=== PATIENT | female | born 1965 | race Caucasian/White ===

== ENCOUNTER 2017-09-21 10:42 | Emergency (ER) | payer BC ==
[2017-09-21 11:15] VITALS: BP 134/75; PULSE 87; TEMP 98.1; BMI 23.8
--- NOTE | 2017-09-21 11:52 | PDOC ---
History of Present Illness - General Chief Complaint: Head/Neck problem Stated Complaint: LEFT ARM NUMBENSS TO JAW AND LOWER LIP AND TON Time Seen by Provider: 09/21/17 11:00 - History of Present Illness Initial Comments: 09/21/17 11:49 Chief complaint numbness tingling to cheek tong arm History of present illness: This is a 51-year-old woman with past medical history significant for migraines, anxiety, and cervical disc disease with chronic left arm tingling who presents to the emergency department after awakening from sleep last night at approximately 1 AM with tingling to her left arm left cheek and left tongue. Symptoms lasted approximately half hour she then went back to sleep upon awakening symptoms had almost completely resolved she went to work. 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 Currently her symptoms have completely resolved. She denies any headache no recent flulike symptoms no chest pain or shortness of breath no weakness no numbness. Symptoms were intermittent occurred while at rest alleviated with time no exacerbating factors. NIH Stroke Scale - Last Known Well Date/Time & Onset Date Last Known Well: 09/20/17 - Initial Evaluation Level of consciousness: Alert Ask patient the month and their age: Answers both correctly Ask patient to open & close eyes; make fist and let go: Obeys both correctly Best gaze (horizontal eye movement): Normal Visual field testing: No visual field loss Facial paresis (Show teeth/raise eyebrows/close eyes tight): Normal symmetrical movement Motor Function: Left Arm: Normal Motor Function: Right Arm: Normal (extends arm 90 (or 45) degrees for 10 seconds without drift Motor Function: Left Leg: Normal (extends leg 30 degrees for 5 seconds without drift) Motor Function: Right Leg: Normal (extends leg 30 degrees for 5 seconds without drift) Limb Ataxia: No ataxia Sensory(Use pinprick test arms,legs,trunk,face/side to side): Normal Best language (Describe picture, name items, read sentences): No Aphasia Dysarthria (read several words): Normal articulation Extinction and Inattention: No abnormality - Total Score NIH Stroke Scale Score: 0 Past History - Travel Traveled outside of the country in the last 30 days: No Close contact w/someone who was outside of country & ill: No - Past Medical History Allergies/Adverse Reactions: Allergies Allergy/AdvReac Type Severity Reaction Status Date / Time atropine sulfate Allergy Verified 09/21/17 10:53 [From ] bupropion HCl Allergy Verified 09/21/17 10:53 [From Wellbutrin] cefuroxime axetil Allergy Verified 09/21/17 10:53 [From Ceftin] diclofenac sodium Allergy Verified 09/21/17 10:53 [From Pennsaid] hyoscyamine sulfate Allergy Verified 09/21/17 10:53 [From ] levothyroxine sodium Allergy Verified 09/21/17 10:53 metoprolol succinate Allergy Verified 09/21/17 10:53 [From Toprol XL] phenobarbital [From ] Allergy Verified 09/21/17 10:53 scopolamine hydrobromide Allergy Verified 09/21/17 10:53 [From ] topiramate [From Topamax] Allergy Verified 09/21/17 10:53 Home Medications: Ambulatory Orders Alprazolam [Xanax] 0.25 mg PO PRN 09/21/17 Ranitidine HCl [Zantac] 150 mg PO PRN 09/21/17 Rizatriptan Benzoate [Maxalt] 10 mg PO PRN 09/21/17 Anemia: No Asthma: No Cancer: No Cardiac Disorders: Yes (RHEUMATIC FEVER MVP) COPD: No CHF: No Diabetes: No (LATENT DIABETES MELLITUS) GI Disorders: Yes (GERD) Disorders: Yes (ENDOMETRIOSIS OF INTESTINE) HTN: No Hypercholesterolemia: No Liver Disease: No Psychiatric Problems: Yes (ANXIETY) Thyroid Disease: Yes (HYPOTHYROIDISM) Other medical history: 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, MIGRAINES - Surgical History Abdominal Surgery: No Appendectomy: No Cardiac Surgery: No Cholecystectomy: No GI Surgery: Yes (LAPOROSCOPY, LAPOROTOMY) Lung Surgery: No Neurologic Surgery: No Orthopedic Surgery: Yes (ROTATOR CUFF REPAIR L 03/14) - Suicide/Smoking/Psychosocial Hx Smoking History: Former smoker Have you smoked in the past 12 months: No If you are a former smoker, when did you quit?: 11 YEARS AGO Information on smoking cessation initiated: No Hx Alcohol Use: Yes (SOCIAL) Drug/Substance Use Hx: No Substance Use Type: Alcohol Hx Substance Use Treatment: No Review of Systems - Review of Systems Comments:: 09/21/17 11:51 ROS: A complete review of 10 out of 10 review of systems is taken and is negative apart from what is previously mentioned below and in the HPI. *Physical Exam - Vital Signs Last Vital Signs Temp Pulse Resp BP Pulse Ox 98.1 F 87 16 134/75 100 09/21/17 10:45 09/21/17 10:45 09/21/17 10:45 09/21/17 10:45 09/21/17 10:45 - Physical Exam Comments: 09/21/17 11:51 Vitals: Triage Vital signs reviewed General Appearance: no acute distress, well nourished well developed, Head: Atraumatic, Eyes: Pupils equal reactive round, extraocular movement intact Throat: Posterior oropharynx without erythema, mucous membranes moist, Neck: Supple;No Nucal rigidity Chest Wall: Nontender Cardiac: Regular rate and rhythym, no murmurs, no rubs, no gallops, Lungs: Clear to auscultation bilateral, good air movement bilaterally, Abdomen: Soft, non distended, normal bowel sounds, non tender to palpation Extremities: Full range of motion to all extremities, no cyanosis, clubbing, or edema Skin: Warm and dry, no rashes or lesions, no rash, no petechiae Neuro: AOX3; Cranial Nerves 2-12 grossly intact, Strength intact to all extremities, Sensation intact to all extremities,gait normal, no pronator drift , normal finger to nose Psych: normal mood, normal affect Heart Score/ECG Review - ECG Impressions Comment:: 09/21/17 11:52 EKG performed at 11:33 AM. Sinus rhythm rate of [address] elevations no T-wave inversions. Normal intervals Interpreted by me ED Treatment Course - LABORATORY CBC & Chemistry Diagram: 09/21/17 11:15 09/21/17 12:00 - RADIOLOGY Radiology Studies Ordered: Category Date Time Status CERVICAL SPINE CT W/O CONTR [CT] Stat CT Scan 09/21/17 11:[address] WITHOUT CONTRAST [CT] Stat CT Scan 09/21/17 11:12 Ordered CXRPORT [CHEST X-RAY PORTABLE*] [RAD] Stat Radiology 09/21/17 11:12 Ordered Medical Decision Making - Medical Decision Making 09/21/17 11:52 51 years old past medical history significant for migraines, anxiety, cervical next disease presents to the emergency department after waking from sleep at approximately 1 AM with numbness tingling to her left on left cheek left tongue. Here in the emergency patient with no focal findings on neurologic examination an IHSS stroke scale score 0. Differential diagnosis includes TIA, radiculopathy, cervical disc disease, complex migraine, We'll check labs EKG troponin given left arm tingling CT head CT cervical will discussed with patient's neurologist observe and reassess 09/21/17 13:28 1 point on ABCD 2 score patient currently asymptomatic with a normal neurologic examination. Head CT and cervical spine CT as dictated. Labs EKG troponin all within normal limits Case discussed with Dr. Dalal neurology recommends 81 mg aspirin daily will follow-up patient next week at this point patient safe for outpatient follow-up Findings, the need for follow-up and strict return instructions discussed with patient. *DC/Admit/Observation/Transfer Diagnosis at time of Disposition: Tingling - Discharge Dispostion Condition at time of disposition: Stable Admit: No - Referrals - Patient Instructions Additional Instructions: Take 81 mg aspirin daily. Follow-up with Dr. Dalal this week. Return to the emergency department for any severe worsening symptoms or for any concerns. - Post Discharge Activity
[2017-09-21 12:00] LABS: BASO % 1.1 % (0-2.0); LYMPH % 28.4 % (8-40); MCH 28.6 pg (25.7-33.7); MCHC 33.4 g/dl (32.0-36.0); MEAN CELL VOLUME 85.7 fl (80-96); MEAN PLT VOLUME 8.7 fl (7.5-11.1); NEUT % 64.5 % (42.8-82.8); PLATELET COUNT 350 K/MM3 (134-434); RDW 12.1 % (11.6-15.6); WHITE BLOOD COUNT 6.1 K/mm3 (4.0-10.8)
[2017-09-21 12:59] LABS: ANION GAP 4 (8-16); BLOOD UREA NITROGEN 13 mg/dl (7-18); CALCIUM 9.7 mg/dl (8.4-10.2); CHLORIDE 104 mmol/L (98-107); CO2 29 mmol/L (22-28); GLUCOSE,RANDOM 116 mg/dl (74-106); POTASSIUM 4.7 mmol/L (3.5-5.1); SODIUM 137 mmol/L (136-145)
[2017-09-21 13:13] LABS: CREATININE < 0.8 mg/dl (0.6-1.3)
--- NOTE | 2017-09-22 07:55 | EKG ---
Test Reason : Blood Pressure : / mmHG Vent. Rate : 072 BPM Atrial Rate : 072 BPM P-R Int : 132 ms QRS Dur : 078 ms QT Int : 416 ms P-R-T Axes : 031 049 033 degrees QTc Int : 455 ms NORMAL SINUS RHYTHM NORMAL ECG WHEN COMPARED WITH ECG OF 18-NOV-2005 20:11, NO SIGNIFICANT CHANGE WAS FOUND Confirmed by LSIA ROMERO MD ([id number]) on 09/22/2017 7:54:43 AM Referred By: MARCEL SANTIAGO Confirmed By:LISA ROMERO MD
== END 2017-09-21 13:37 | disposition home or self-care (01) ==
LOC: FER 10:42
DX: R20.2 Paresthesia of skin (principal)
CPT/HCPCS: 36415; 70450-TC; 71045-TC-FY; 72125-TC; 80048; 84484; 85025; 93005; 99283-25

== ENCOUNTER 2018-01-31 11:30 | Inpatient (IN) | payer BC, OTHER ==
[2018-02-04 16:08] VITALS: BMI 29.2
[2018-02-07] MEDS ORDERED: ROCURONIUM BROMIDE 50 MG/5 ML VIAL ONE (10:47)
[2018-02-07] MEDS ORDERED: PROPOFOL 20 ML ONE (10:47)
[2018-02-07] MEDS ORDERED: fentaNYL CITRATE 250 MCG/5 ML VIAL ONE (10:47)
[2018-02-07] MEDS ORDERED: MIDAZOLAM HCL 2 MG/2 ML SINGLE DOSE VIAL ONE (10:47)
[2018-02-07] MEDS ORDERED: DEXAMETHASONE SOD PHOSPHATE 4 MG/1 ML VIAL ONE (10:51)
[2018-02-07] MEDS ORDERED: LIDOCAINE HCL/PF 2% SDV 5ML VIAL ONE (10:51)
[2018-02-07] MEDS ORDERED: GENTAMICIN SO4 80 MG/2 ML VIAL ONE (11:03)
--- NOTE | 2018-02-07 11:03 | HP ---
History & Physical Update - History History: No Change - Physical Physical: No Change - Assessment Assessment: No Change - Plan Plan: No Change
[2018-02-07] MEDS ORDERED: BUPIVACAINE HCL/PF 0.5% (5MG/ML) 10 ML VIAL ONE (11:04)
[2018-02-07] MEDS ORDERED: VANCOMYCIN 1,000 MG VIAL (RESTRICTED TO ID ONLY) IVPB ONE (11:31)
[2018-02-07] MEDS ORDERED: MINERAL OIL 25 ML OIL ONE (12:50)
[2018-02-07] MEDS ORDERED: oxyCODONE HCL 5 MG TABLET PO PRN ×3 (13:50→13:56)
[2018-02-07] MEDS ORDERED: ONDANSETRON 4 MG/2 ML VIAL IVPUSH PRN ×2 (13:50→13:56)
[2018-02-07] MEDS ORDERED: diphenhydrAMINE HCL 25 MG CAPSULE (FP) PO PRN (13:50)
[2018-02-07] MEDS ORDERED: morphine CARPU-JECT 4 MG/1 ML DISP.SYRIN IVPUSH PRN (13:50)
[2018-02-07] MEDS ORDERED: PROMETHAZINE HCL 25 MG/1 ML VIAL IVPUSH PRN (13:56)
[2018-02-07] MEDS ORDERED: DOCUSATE SODIUM 100 MG CAPSULE (FP) PO SCH (14:00)
[2018-02-07] MEDS ORDERED: HEPARIN NA (PORCINE) 5,000 UNITS/ML 1ML VIAL SQ SCH (14:00)
[2018-02-07] MEDS ORDERED: LACTATED RINGERS SOLUTION 1,000 ML IV SCH (14:00)
[2018-02-07] MEDS ORDERED: LACTATED RINGERS SOLUTION 1,000 ML/1,000 ML INFUS.BAG IV SCH (14:00)
--- NOTE | 2018-02-07 14:00 | OP ---
Operative Note - Note: Operative Date: 02/07/18 Pre-Operative Diagnosis: Cervical spondylosis with radiculopathy Operation: C6 corpectomy and presybeterian of lordosis with reconstruction Surgeon: Иван Nicholas Blade Changer: Armando Taylor Anesthesia: General Estimated Blood Loss (mls): 50 Fluid Volume Replaced (mls): 800 Operative Report Dictated: Yes
--- NOTE | 2018-02-07 14:01 | SURG ---
Surgery Front Office Administrator Note Front Office Administrator: Armando Taylor PA-C Date of Service: 02/07/18 Diagnosis: Cervical spondylosis with radiculopathy Procedure: C6 corpectomy and advent of lordosis with reconstruction I was present for the entirety of the operative procedure. For further detail, please refer to operative report.
[2018-02-07] MEDS: ACETAMINOPHEN 1000 MG/100 ML VIAL (NON FORMULARY) IVPB PRN (19:35)
[2018-02-07] MEDS: RANITIDINE HCL 150 MG TABLET (FP) PO SCH (22:23)
[2018-02-08] MEDS: ACETAMINOPHEN 1000 MG/100 ML VIAL (NON FORMULARY) IVPB PRN ×3 (00:04→11:00)
--- NOTE | 2018-02-08 08:48 | PN ---
Progress Note, Physician - Current Medication List Current Medications: Active Medications Acetaminophen (Ofirmev Injection -) 1,000 mg IVPB Q4H PRN PRN Reason: PAIN 5-10 Last Admin: 02/08/18 06:17 Dose: 1,000 mg Lactated Ringer's (Lactated Ringers Solution) 1,000 mls @ 75 mls/hr IV ASDIR [facility] Last Admin: 02/07/18 18:05 Dose: Not Given Ondansetron HCl (Zofran Injection) 4 mg IVPUSH Q6H PRN PRN Reason: NAUSEA AND/OR VOMITING Oxycodone HCl (Roxicodone -) 10 mg PO Q4H PRN PRN Reason: PAIN LEVEL 6-10 Stop: 02/08/18 13:55 Promethazine HCl (Phenergan Injection -) 12.5 mg IVPUSH Q6H PRN PRN Reason: NAUSEA-FOR RESCUE AFTER 15 MIN Ranitidine HCl (Zantac -) 150 mg PO BID [facility] Last Admin: 02/07/18 22:23 Dose: 150 mg - Objective Vital Signs: Vital Signs Temperature 98.7 F 02/08/18 07:22 Pulse Rate 77 02/08/18 07:22 Respiratory Rate 18 02/08/18 07:22 Blood Pressure 117/46 02/08/18 07:22 O2 Sat by Pulse Oximetry (%) 97 02/07/18 21:00
--- NOTE | 2018-02-08 09:25 | CONSULT ---
Consult - Past Medical History Cardio/Vascular: Yes: Hyperlipdemia, Other (MVP). No: HTN ...LMP Comment: 2007 Musculoskeletal: Yes: Other (neck pain--disc ds) - Alcohol/Substance Use Hx Alcohol Use: Yes (SOCIAL) - Smoking History Smoking history: Former smoker Have you smoked in the past 12 months: No If you are a former smoker, when did you quit?: 11 YEARS AGO Home Medications - Allergies Allergies/Adverse Reactions: Allergies Allergy/AdvReac Type Severity Reaction Status Date / Time cefuroxime axetil Allergy Severe Itching Verified 02/04/18 15:56 [From Ceftin] diclofenac sodium Allergy Severe Itching Verified 02/04/18 15:56 [From Pennsaid] atropine sulfate Allergy Verified 09/21/17 10:53 [From ] bupropion HCl Allergy Rash Verified 02/04/18 15:56 [From Wellbutrin] hyoscyamine sulfate Allergy Verified 09/21/17 10:53 [From ] levothyroxine sodium Allergy Verified 09/21/17 10:53 metoprolol succinate Allergy Verified 09/21/17 10:53 [From Toprol XL] phenobarbital [From ] Allergy Verified 09/21/17 10:53 scopolamine hydrobromide Allergy Verified 09/21/17 10:53 [From ] topiramate [From Topamax] Allergy Verified 09/21/17 10:53 oxycodone AdvReac Mild Rash Verified 02/07/18 10:51 - Home Medications Home Medications: Ambulatory Orders Alprazolam [Xanax] 0.25 mg PO PRN PRN 09/21/17 Ranitidine HCl [Zantac] 150 mg PO PRN 09/21/17 Rizatriptan Benzoate [Maxalt] 10 mg PO PRN 09/21/17 Calcium Carb/D3/Magnesium/Zinc [Vijay Mag Zinc + D Tablet] 1 each PO DAILY Ibuprofen/Famotidine [Duexis 800-26.6 mg Tablet] 1 each PO PRN PRN 02/04/18 Multivitamin [One Daily] 1 each PO DAILY 02/04/18 Polyethylene Glycol 3350 [Miralax (For Bowel Prep) -] 17 gm PO DAILY 02/04/18 Vit B2/Niacin/B6/B12/Dexpanth [B Complex Sublingual Liquid] 59 ml SL DAILY 02/04 Review of Systems - Review of Systems Cardiovascular: denies: Chest Pain Respiratory: denies: SOB Gastrointestinal: denies: Abdominal Pain Neurological: reports: Other (neck pain). denies: Change in Speech, Confusion, Dizziness Physical Exam Vital Signs: Vital Signs Temperature 98.7 F 02/08/18 07:22 Pulse Rate 77 02/08/18 07:22 Respiratory Rate 18 02/08/18 07:22 Blood Pressure 117/46 02/08/18 07:22 O2 Sat by Pulse Oximetry (%) 97 02/07/18 21:00 Cardiovascular: Yes: Regular Rate and Rhythm, Murmur Respiratory: Yes: Regular, CTA Bilaterally Gastrointestinal: Yes: Normal Bowel Sounds, Soft Extremities: No: Calf Tenderness Edema: No Neurological: Yes: Alert, Oriented, Other (collar in place drain in place). No : Facial Droop Problem List - Problems (1) Discogenic syndrome Assessment/Plan: Operative Date: 02/07/18 Pre-Operative Diagnosis: Cervical spondylosis with radiculopathy Operation: C6 corpectomy and jew of lordosis with reconstruction Surgeon: Иван Nicholas Further plan per surgery Code(s): UYS0781 - (2) HLD (hyperlipidemia) Code(s): E78.5 - HYPERLIPIDEMIA, UNSPECIFIED
[2018-02-08] MEDS ORDERED: FOLIC ACID 1 MG TABLET (FP) PO SCH (10:00)
[2018-02-08] MEDS ORDERED: FERROUS SO4 325 MG TABLET (FP) PO SCH (10:00)
[2018-02-08] MEDS: RANITIDINE HCL 150 MG TABLET (FP) PO SCH (10:23)
[2018-02-08] MEDS ORDERED: CODEINE SO4 30 MG TABLET PO PRN (15:22)
[2018-02-08 17:16] VITALS: BP 125/74; PULSE 71; TEMP 98.2
== END 2018-02-08 18:45 | disposition home or self-care (01) | DRG 321 ==
LOC: EDSTATUS 11:30 → JSAMEDAYSX 02-07 09:37 → J8W 02-07 17:50
PROVIDERS: ADMIT Family Medicine; ATTEND Family Medicine
PROC: 0RG20A0 Fusion of 2 or more Cervical Vertebral Joints with Interbody Fusion Device, Anterior Approach, Anterior Column, Open Approach (ICD-10-PCS; principal; 2018-02-07 11:30)
DX: M47.12 Other spondylosis with myelopathy, cervical region (principal); E78.5 Hyperlipidemia, unspecified; I34.1 Nonrheumatic mitral (valve) prolapse; Z87.891 Personal history of nicotine dependence
CPT/HCPCS: 72125-TC; 86850; 86900; 86901; 94760; J0131

== ENCOUNTER 2019-09-15 09:05 | Day surgery (SDC) | payer BC ==
[2019-09-14 14:06] VITALS: BMI 28.1
[2019-09-15 12:10] VITALS: TEMP 97.5
[2019-09-15 13:00] VITALS: BP 110/60; PULSE 64
--- NOTE | 2019-09-19 16:43 | PATH ---
Surgical Pathology Report Patient Name: EDMUND TRUJILLO [facility]. Rec. #: [id number] /Age/Gender: 1965 (Age: 53) / F Account: [id number] Location: U-ENDOSCOPY Taken: 09/15/2019 Received: 09/15/2019 Reported: 09/19/2019 Physicians: Kirk Pino M.D. Specimen(s) Received A: DUODENAL BULB B: ANTRUM C: ESOPHAGUS D: DESCENDING COLON E: SIGMOID COLON Clinical History Abnormal weight loss, dysphagia, diarrhea, abdominal pain, melanosis coli, screening colon cancer Postoperative diagnosis: Hiatal hernia, GERD, colon polyp, diverticulosis Final Diagnosis A. DUODENUM, SECOND PORTION AND BULB, BIOPSY: DUODENAL MUCOSA WITH SMALL LYMPHOID AGGREGATE. B. STOMACH, ANTRUM, BIOPSY: GASTRIC ANTRAL MUCOSA WITH MILD CHRONIC GASTRITIS. IMMUNOHISTOCHEMICAL STAIN FOR H. PYLORI IS NEGATIVE. C. ESOPHAGUS, BIOPSY: SQUAMOUS MUCOSA WITH MILD BASAL CELL HYPERPLASIA CONSISTENT WITH MILD REFLUX TYPE ESOPHAGITIS. D. DESCENDING COLON, POLYP, POLYPECTOMY: POLYPOID COLONIC MUCOSA WITH PROMINENT LYMPHOID AGGREGATE. E. SIGMOID COLON, POLYP, POLYPECTOMY: TUBULAR ADENOMA. Immunohistochemical stain performed at [place], [place] ([id number]) and interpreted at [facility]. Positive and negative controls (internal if applicable) show appropriate results. Electronically Signed Stephanie Melgar M.D. Gross Description A. Received in formalin, labeled "biopsy second portion of duodenum and bulb" are 3 stewart, irregular portions of soft tissue ranging from 0.2-0.4 cm. in greatest dimension. The specimens are submitted in toto in one cassette. B. Received in formalin, labeled "biopsy antrum" are 4 stewart, irregular portions of soft tissue ranging from 0.3-0.6 cm. in greatest dimension. The specimens are submitted in toto in one cassette. C. Received in formalin, labeled "biopsy esophagus" is a stewart, irregular portion of soft tissue measuring 0.3 cm. in greatest dimension. The specimen is submitted in toto in one cassette. D. Received in formalin, labeled "biopsy polyp descending" is a stewart, irregular portion of soft tissue measuring 0.2 cm. in greatest dimension. The specimen is submitted in toto in one cassette. E. Received in formalin, labeled "biopsy polyp sigmoid colon" are 2 stewart, irregular portions of soft tissue measuring 0.1 and 0.3 cm. in greatest dimension. The specimens are submitted in toto in one cassette. 09/15/2019 [facility]09/15/2019
== END 2019-09-15 12:30 | disposition home or self-care (01) ==
LOC: JASU-ENDO 09:05
PROVIDERS: ATTEND Internal Medicine Gastroenterology
PROC: 0DBN8ZX Excision of Sigmoid Colon, Via Natural or Artificial Opening Endoscopic, Diagnostic (ICD-10-PCS; 2019-09-15)
PROC: 0DB98ZX Excision of Duodenum, Via Natural or Artificial Opening Endoscopic, Diagnostic (ICD-10-PCS; 2019-09-15)
PROC: 0DB68ZX Excision of Stomach, Via Natural or Artificial Opening Endoscopic, Diagnostic (ICD-10-PCS; 2019-09-15)
PROC: 0DB28ZX Excision of Middle Esophagus, Via Natural or Artificial Opening Endoscopic, Diagnostic (ICD-10-PCS; 2019-09-15)
PROC: 0DB38ZX Excision of Lower Esophagus, Via Natural or Artificial Opening Endoscopic, Diagnostic (ICD-10-PCS; 2019-09-15)
PROC: 0DBM8ZX Excision of Descending Colon, Via Natural or Artificial Opening Endoscopic, Diagnostic (ICD-10-PCS; principal; 2019-09-15 10:00)
DX: Z12.11 Encounter for screening for malignant neoplasm of colon (principal); R63.4 Abnormal weight loss; K57.30 Diverticulosis of large intestine without perforation or abscess without bleeding; D12.4 Benign neoplasm of descending colon; D12.5 Benign neoplasm of sigmoid colon; K29.70 Gastritis, unspecified, without bleeding; K44.9 Diaphragmatic hernia without obstruction or gangrene
CPT/HCPCS: 88305-TC

== ENCOUNTER 2021-08-06 05:25 | Emergency (ER) | payer BC ==
[2021-08-06] MEDS ORDERED: NAPROXEN 500 MG TABLET ONE (05:30)
[2021-08-06] MEDS ORDERED: IBUPROFEN 400 MG TABLET (FP) PO ONE ×2 (05:32→05:35)
[2021-08-06 05:45] VITALS: BP 134/78; PULSE 88; TEMP 98.9; BMI 23.3
== END 2021-08-06 05:47 | disposition home or self-care (01) ==
LOC: FER 05:25
DX: U07.1 COVID-19 (principal); R51.9 Headache, unspecified
CPT/HCPCS: 99283-25

== ENCOUNTER 2023-05-14 09:12 | Day surgery (SDC) | payer BC ==
[2023-05-11 15:19] VITALS: BMI 22.4
[2023-05-14 10:17] VITALS: TEMP 97.8
[2023-05-14 10:57] VITALS: BP 106/71; PULSE 69; RESP 18
== END 2023-05-14 10:57 | disposition home or self-care (01) ==
LOC: FASU-ENDO 09:12
PROVIDERS: ATTEND Internal Medicine Gastroenterology
PROC: 0DB68ZX Excision of Stomach, Via Natural or Artificial Opening Endoscopic, Diagnostic (ICD-10-PCS; 2023-05-14)
PROC: 0DB48ZX Excision of Esophagogastric Junction, Via Natural or Artificial Opening Endoscopic, Diagnostic (ICD-10-PCS; 2023-05-14)
PROC: 0DB98ZX Excision of Duodenum, Via Natural or Artificial Opening Endoscopic, Diagnostic (ICD-10-PCS; principal; 2023-05-14 09:59)
DX: K20.90 Esophagitis, unspecified without bleeding (principal); K31.9 Disease of stomach and duodenum, unspecified; R10.13 Epigastric pain
CPT/HCPCS: 88305-TC

== ENCOUNTER 2024-09-08 07:25 | Day surgery (SDC) | payer BC, MEDICARE ==
[2024-09-05 14:18] VITALS: BMI 23.3
[2024-09-08] MEDS ORDERED: MIDAZOLAM HCL 2 MG/2 ML SINGLE DOSE VIAL ONE (08:15)
[2024-09-08 09:10] VITALS: RESP 16; TEMP 97.1
[2024-09-08 09:39] VITALS: BP 107/64; PULSE 74
== END 2024-09-08 09:55 | disposition home or self-care (01) ==
LOC: FASU-ENDO 07:25
PROVIDERS: ATTEND Internal Medicine Gastroenterology
PROC: 0DJD8ZZ Inspection of Lower Intestinal Tract, Via Natural or Artificial Opening Endoscopic (ICD-10-PCS; principal; 2024-09-08 08:34)
DX: Z12.11 Encounter for screening for malignant neoplasm of colon (principal); K64.8 Other hemorrhoids; K57.30 Diverticulosis of large intestine without perforation or abscess without bleeding